=== PATIENT | female | born 1965 | race Caucasian/White ===

== ENCOUNTER 2016-11-04 07:11 | Day surgery (SDC) | payer OTHER ==
[2016-11-01 09:12] LABS: HEMOGLOBIN 13.1 g/dL (11.7-16.4)
[2016-11-01 09:27] LABS: ASPARTATE AMINO TRANSFERASE 13 U/L (15-37); BLOOD UREA NITROGEN 15 mg/dL (7-18)
[~2016-11-04] VITALS: Ht 172.7 cm; Wt 76.0 kg
[~2016-11-04 07:11] MED LIST: ASCO10007 PO; BENZ100C PO; BUPIVACAINE/PF-EPI 0.5% 1:200K ONE; CIPR500T3 PO; CIPR500T87 PO; CYAN10005 PO; ESCI20TA10 PO; ESTR-8 TD; ESTR1PAT79 TD; FOLI1TAB47 PO; GINK120T3 PO; LACT1CAP11 PO; LEVO50TA5 PO; MONT10TA9 PO; MULT-706 PO; MV-M1TAB29 PO; OMEP-110 PO; OMEP40CA6 PO; PROG100C4 PO; PYRI100T2 PO
[2016-11-04] MEDS ORDERED: LACTATED RINGERS 1,000 ML IV SCH (07:47)
[2016-11-04 08:04] VITALS: BP 116/78
[2016-11-04] MEDS ORDERED: SCOPOLAMINE PATCH, 1.5MG PATCH.TD72 TD ONE ×2 (08:25)
[2016-11-04] MEDS ORDERED: FENTANYL PF 250 MCG/5ML ONE (08:28)
[2016-11-04] MEDS ORDERED: MIDAZOLAM 1 MG/ML, 2ML ONE (08:29)
[2016-11-04] MEDS ORDERED: PROPOFOL 10 MG/ML, 20ML ONE (08:37)
[2016-11-04] MEDS ORDERED: DEXAMETHASONE 4 MG/ML, 1ML ONE (08:37)
[2016-11-04] MEDS ORDERED: CEFAZOLIN 1,000 MG ONE (08:37)
[2016-11-04] MEDS ORDERED: ROCURONIUM 10 MG/ML ONE (08:37)
[2016-11-04] MEDS ORDERED: GLYCOPYRROLATE 0.2MG/1ML ONE (08:37)
[2016-11-04] MEDS ORDERED: ONDANSETRON 2MG/ML, 2ML ONE (08:37)
[2016-11-04] MEDS ORDERED: KETOROLAC 30 MG/1 ML ONE (08:37)
[2016-11-04] MEDS ORDERED: SUCCINYLCHOLINE 20 MG/ML, 10ML ONE (08:37)
[2016-11-04] MEDS ORDERED: NEOSTIGMINE 1 MG/ML, 10ML ONE (08:37)
[2016-11-04 08:57] LABS: HCG UR OBC PASS
[2016-11-04] MEDS ORDERED: ACETAMINOPHEN 650 MG/20.3 ML UDC ONE (09:21)
[2016-11-04] MEDS ORDERED: ACETAMINOPHEN 325 MG TABLET ONE (09:22)
[2016-11-04] MEDS ORDERED: OXYcodone 5 MG/5 ML ORAL.SOL UDC ONE (09:22)
[2016-11-04] MEDS ORDERED: MEPERIDINE/PF 25MG/0.5ML ONE (09:22)
[2016-11-04] MEDS ORDERED: MIDAZOLAM 1 MG/ML, 2ML IV PRN (09:30)
[2016-11-04] MEDS ORDERED: ONDANSETRON 2MG/ML, 2ML IVPush PRN (09:30)
[2016-11-04] MEDS ORDERED: PROMETHAZINE 25 MG/ML, 1ML IV PRN (09:30)
[2016-11-04] MEDS ORDERED: FENTANYL PF 100 MCG/2ML IV PRN (09:30)
[2016-11-04] MEDS ORDERED: OXYcodone 5 MG/5 ML ORAL.SOL UDC PO PRN (09:30)
[2016-11-04] MEDS ORDERED: HYDROmorphone 1 MG/ML, 1ML IV PRN (09:30)
[2016-11-04] MEDS ORDERED: HYDROcodone/APAP 7.5-325MG/15ML UDC PO PRN (09:30)
[2016-11-04] MEDS ORDERED: ACETAMINOPHEN 325 MG TABLET PO PRN (09:30)
[2016-11-04] MEDS ORDERED: MEPERIDINE/PF 25MG/0.5ML IVPush PRN (09:30)
== END 2016-11-04 12:20 | disposition home or self-care (01) ==
LOC: OUT 07:11
PROVIDERS: ATTEND Surgery
DX: K81.1 Chronic cholecystitis (principal); E03.9 Hypothyroidism, unspecified; G43.909 Migraine, unspecified, not intractable, without status migrainosus; Z72.89 Other problems related to lifestyle; Z82.3 Family history of stroke; Z82.49 Family history of ischemic heart disease and other diseases of the circulatory system
CPT/HCPCS: 36415; 47562; 80053; 81025; 83690; 85025; 88304; 93005; J0330; J0690; J1100; J1885; J2175; J2250; J2405; J2704; J2710; J3010; J3490

== ENCOUNTER 2016-11-23 01:55 | Emergency (ER) | payer OTHER ==
[~2016-11-23] VITALS: Ht 172.7 cm; Wt 75.9 kg
[~2016-11-23 01:55] MED LIST changes: -BUPIVACAINE/PF-EPI 0.5% 1:200K ONE
[2016-11-23] MEDS ORDERED: CIPROFLOXACIN/PMX 400MG/200ML 200 ML IV ONE (02:30)
[2016-11-23] MEDS ORDERED: LIDOCAINE 1%-EPI 1:100K, 20ML SQ ONE (02:30)
[2016-11-23] MEDS ORDERED: SODIUM CHLORIDE 0.9% 1,000ML IVBOLUS ONE (02:30)
[2016-11-23] MEDS ORDERED: SODIUM CHLORIDE FLUSH 10ML SYR IVF ONE (02:30)
[2016-11-23] MEDS ORDERED: CLINDAMYCIN PMX 600MG/50ML 50 ML IV ONE (02:30)
[2016-11-23] MEDS ORDERED: KETOROLAC 30 MG/1 ML IV ONE (02:30)
[2016-11-23] MEDS ORDERED: HYDROmorphone 1 MG/ML, 1ML ONE ×2 (02:36→04:29)
[2016-11-23] MEDS ORDERED: KETOROLAC 30 MG/1 ML ONE (02:36)
[2016-11-23] MEDS ORDERED: CLINDAMYCIN PMX 600MG/50ML 50 ML ONE (02:37)
[2016-11-23] MEDS ORDERED: CIPROFLOXACIN/PMX 400MG/200ML 200 ML ONE (02:37)
[2016-11-23] MEDS ORDERED: LIDOCAINE 1%-EPI 1:100K, 50ML ONE ×2 (02:37→02:38)
[2016-11-23] MEDS ORDERED: ONDANSETRON 2MG/ML, 2ML ONE (02:49)
[2016-11-23] MEDS: HYDROmorphone 1 MG/ML, 1ML IVPush PRN ×2 (03:00→04:31)
[2016-11-23 05:15] VITALS: BP 104/66
== END 2016-11-23 05:17 | disposition home or self-care (01) ==
LOC: ED 05:02
DX: S61.551A Open bite of right wrist, initial encounter (principal); L03.113 Cellulitis of right upper limb; E03.9 Hypothyroidism, unspecified; K21.9 Gastro-esophageal reflux disease without esophagitis; Z90.49 Acquired absence of other specified parts of digestive tract; W55.01XA Bitten by cat, initial encounter; Y93.89 Activity, other specified; Y92.89 Other specified places as the place of occurrence of the external cause; Y99.8 Other external cause status
CPT/HCPCS: 73110; 96365; 96367; 96372; 96375; 96376; 99284; J0744; J1170; J1885; J3490; J7030

== ENCOUNTER 2016-11-24 19:53 | Inpatient (IN) | payer OTHER ==
[~2016-11-24] VITALS: Ht 172.7 cm; Wt 82.1 kg
[2016-11-24 20:42] LABS: BLOOD UREA NITROGEN 13 mg/dL (7-18)
[2016-11-24 20:44] LABS: HEMOGLOBIN 12.3 g/dL (11.7-16.4)
[2016-11-24] MEDS ORDERED: VANCOMYCIN PER PHARMACY MC ONE (21:00)
[2016-11-24] MEDS ORDERED: SODIUM CHLORIDE FLUSH 10ML SYR IVF ONE (21:00)
[2016-11-24] MEDS ORDERED: VANCOMYCIN 1,700 MG in SODIUM CHLORIDE 0.9% 250 ML IV ONE (21:30)
[2016-11-24] MEDS ORDERED: HYDROmorphone 1 MG/ML, 1ML ONE (21:58)
[2016-11-24] MEDS ORDERED: ONDANSETRON 2MG/ML, 2ML ONE (21:58)
[2016-11-24] MEDS ORDERED: VANCOMYCIN PER PHARMACY MC PRN (22:00)
[2016-11-24] MEDS ORDERED: PROMETHAZINE 25 MG/ML, 1ML IM PRN (22:00)
[2016-11-24] MEDS: HYDROmorphone 2 MG/ML, 1ML IV PRN (22:01)
[2016-11-24] MEDS: ONDANSETRON 2MG/ML, 2ML IVP PRN (22:01)
[2016-11-24] MEDS ORDERED: PHARMACOKINETIC MONITORING MC PRN (23:00)
[2016-11-24 23:02] VITALS: BP 102/68
[2016-11-24] MEDS: MINIVELLE PATCH MC SCH (23:30)
[2016-11-24] MEDS: LEVOFLOXACIN/PMX 750MG/150ML 150 ML IV SCH (23:47)
[2016-11-24] MEDS: CITALOPRAM 20 MG TABLET PO SCH (23:48)
[2016-11-24] MEDS: LACTATED RINGERS 1,000 ML IV SCH (23:48)
[2016-11-24] MEDS: PROGESTERONE 100 MG CAPSULE PO SCH (23:48)
[2016-11-24] MEDS: DIPHENHYDRAMINE 50 MG/ML, 1ML IVPush PRN (23:58)
[2016-11-25 01:52] VITALS: BP 101/65
[2016-11-25] MEDS: HYDROmorphone 2 MG/ML, 1ML IV PRN ×6 (02:23→21:39)
[2016-11-25 05:11] LABS: HEMOGLOBIN 11.4 g/dL (11.7-16.4)
[2016-11-25 05:23] LABS: BLOOD UREA NITROGEN 9 mg/dL (7-18)
[2016-11-25 05:32] LABS: ASPARTATE AMINO TRANSFERASE 16 U/L (15-37)
[2016-11-25 07:17] VITALS: BP 111/70
[2016-11-25] MEDS: MINIVELLE PATCH MC SCH (07:30)
[2016-11-25] MEDS: ONDANSETRON 2MG/ML, 2ML IVP PRN ×3 (07:37→21:39)
[2016-11-25] MEDS: LEVOTHYROXINE 100 MCG INJ IVPush SCH (07:37)
[2016-11-25] MEDS: DIPHENHYDRAMINE 50 MG/ML, 1ML IVPush PRN ×3 (08:23→23:41)
[2016-11-25] MEDS: VANCOMYCIN 1,600 MG in SODIUM CHLORIDE 0.9% 250 ML IV SCH ×2 (09:30→21:39)
[2016-11-25] MEDS ORDERED: ESTRADIOL 0.0375 MG TD SCH ×2 (12:00→12:59)
[2016-11-25] MEDS: LACTATED RINGERS 1,000 ML IV SCH ×2 (12:20→22:30)
[2016-11-25 14:05] VITALS: BP 107/68
[2016-11-25 20:05] VITALS: BP 106/69
[2016-11-25] MEDS: PROGESTERONE 100 MG CAPSULE PO SCH (21:38)
[2016-11-25] MEDS: CITALOPRAM 20 MG TABLET PO SCH (21:38)
[2016-11-25] MEDS: LEVOFLOXACIN/PMX 750MG/150ML 150 ML IV SCH (23:41)
[2016-11-26] MEDS: HYDROmorphone 2 MG/ML, 1ML IV PRN ×6 (01:04→22:30)
[2016-11-26 02:12] VITALS: BP 104/67
[2016-11-26] MEDS: ONDANSETRON 2MG/ML, 2ML IVP PRN ×3 (05:42→22:30)
[2016-11-26 05:50] LABS: BLOOD UREA NITROGEN 7 mg/dL (7-18)
[2016-11-26 06:45] VITALS: BP 101/64
[2016-11-26] MEDS: LEVOTHYROXINE 100 MCG INJ IVPush SCH (09:31)
[2016-11-26] MEDS: VANCOMYCIN 1,600 MG in SODIUM CHLORIDE 0.9% 250 ML IV SCH ×2 (09:31→20:38)
[2016-11-26] MEDS: DIPHENHYDRAMINE 50 MG/ML, 1ML IVPush PRN ×2 (09:32→22:31)
[2016-11-26] MEDS: LACTATED RINGERS 1,000 ML IV SCH (13:37)
[2016-11-26 15:30] VITALS: BP 99/65
[2016-11-26 18:45] VITALS: BP 94/58
[2016-11-26] MEDS ORDERED: ACETAMINOPHEN 325 MG TABLET PO PRN (20:00)
[2016-11-26] MEDS: CITALOPRAM 20 MG TABLET PO SCH (20:06)
[2016-11-26] MEDS: PROGESTERONE 100 MG CAPSULE PO SCH (20:06)
[2016-11-26] MEDS: LEVOFLOXACIN/PMX 750MG/150ML 150 ML IV SCH (22:30)
[2016-11-27] MEDS: LACTATED RINGERS 1,000 ML IV SCH (00:35)
[2016-11-27 02:19] VITALS: BP 92/82
[2016-11-27] MEDS: HYDROmorphone 2 MG/ML, 1ML IV PRN (02:33)
[2016-11-27 07:12] VITALS: BP 95/51
[2016-11-27] MEDS ORDERED: HYDROcodone/APAP 5/325 TABLET PO PRN (08:00)
[2016-11-27] MEDS: LEVOTHYROXINE 100 MCG INJ IVPush SCH (08:11)
[2016-11-27] MEDS: DOXYCYCLINE 100MG TABLET PO SCH ×2 (09:22→21:25)
[2016-11-27 15:55] VITALS: BP 100/60
[2016-11-27 18:21] VITALS: BP 98/64
[2016-11-27] MEDS: CITALOPRAM 20 MG TABLET PO SCH (21:26)
[2016-11-27] MEDS: PROGESTERONE 100 MG CAPSULE PO SCH (21:26)
[2016-11-28] MEDS ORDERED: PNEUMOCOCCAL 23 VACCINE IM-VACC ONE (01:30)
[2016-11-28 01:38] VITALS: BP 91/54
[2016-11-28 04:58] LABS: HEMOGLOBIN 12.4 g/dL (11.7-16.4)
[2016-11-28 05:05] LABS: BLOOD UREA NITROGEN 17 mg/dL (7-18)
[2016-11-28 07:08] VITALS: BP 96/61
[2016-11-28] MEDS ORDERED: DOXY100T PO (07:44)
[2016-11-28] MEDS: LEVOTHYROXINE 100 MCG INJ IVPush SCH (07:45)
[2016-11-28] MEDS: DOXYCYCLINE 100MG TABLET PO SCH (07:45)
[2016-11-28] MEDS ORDERED: ONDANSETRON 4 MG TABLET PO ONE (09:00)
== END 2016-11-28 10:08 | disposition home or self-care (01) | DRG 603 ==
LOC: ED 21:00 → EDIP 21:27 → SUATTDRO 21:31 → 3NE 22:31
DX: L03.113 Cellulitis of right upper limb (principal); E03.9 Hypothyroidism, unspecified; F32.9 Major depressive disorder, single episode, unspecified; S41.131A Puncture wound without foreign body of right upper arm, initial encounter; Z88.1 Allergy status to other antibiotic agents; Z88.0 Allergy status to penicillin; Z90.49 Acquired absence of other specified parts of digestive tract; Z79.890 Hormone replacement therapy; Z88.2 Allergy status to sulfonamides; W55.01XA Bitten by cat, initial encounter; Y93.89 Activity, other specified; Y92.89 Other specified places as the place of occurrence of the external cause; Y99.8 Other external cause status
CPT/HCPCS: 36415; 80048; 80053; 80202; 85025; 85651; 86141; 87040; 96374; 96375; J1170; J1956; J2405; J3370; Q0162; J1200; J7050; J7120

== ENCOUNTER 2017-10-17 12:39 | Emergency (ER) | payer OTHER ==
[~2017-10-17] VITALS: Ht 172.7 cm; Wt 74.9 kg
[~2017-10-17 12:39] MED LIST changes: +ASCO100019 PO; -ASCO10007 PO; +DOXY100T PO; +PROG100C16 PO; -PROG100C4 PO
[2017-10-17] MEDS ORDERED: ONDANSETRON 2MG/ML, 2ML ONE (13:19)
[2017-10-17 13:28] LABS: BASOPHILS # (AUTO) 0.01 x10^3/uL (0-0.1); BASOPHILS % (AUTO) 0 % (0-1); EOSINOPHILS # (AUTO) 0.04 x10^3/uL (0-0.4); EOSINOPHILS % (AUTO) 1 % (1-7); LYMPHOCYTES # (AUTO) 0.58 x10^3/uL (1-3.4); LYMPHOCYTES % (AUTO) 11 % (22-44); MD NO; MEAN CORPUSCULAR HEMOGLOBIN 31.4 pg (27.0-34.8); MEAN CORPUSCULAR HGB CONC 33.9 g/dL (32.4-35.8); MEAN CORPUSCULAR VOLUME 92.5 fL (80-100); MEAN PLATELET VOLUME 8.3 fL (7.4-10.4); MONOCYTES # (AUTO) 0.17 x10^3/uL (0.2-0.8); MONOCYTES % (AUTO) 3 % (2-9); NEUTROPHILS # (AUTO) 4.51 x10^3/uL (1.8-6.8); NEUTROPHILS % (AUTO) 85 % (42-75); PLATELET COUNT 270 x10^3/uL (130-400); RED BLOOD COUNT 4.44 x10^6/uL (3.82-5.3); RED CELL DISTRIBUTION WIDTH 13.2 % (9.6-15.2)
[2017-10-17] MEDS ORDERED: ONDANSETRON 2MG/ML, 2ML IVPush ONE (13:30)
[2017-10-17] MEDS ORDERED: SODIUM CHLORIDE 0.9% 1,000ML IVBOLUS ONE (13:30)
[2017-10-17] MEDS ORDERED: SODIUM CHLORIDE FLUSH 10ML SYR IVF ONE (13:30)
[2017-10-17 13:34] LABS: ALANINE AMINOTRANSFERASE 20 U/L (12-78); ALBUMIN 3.6 g/dL (3.4-5.0); ANION GAP 6 mmol/L (5-15); CALCIUM 8.2 mg/dL (8.5-10.1); CHLORIDE 109 mmol/L (98-107); CREATININE 0.91 mg/dL (0.55-1.02)
[2017-10-17 13:37] LABS: ALKALINE PHOSPHATASE 56 U/L (45-117); BILIRUBIN,TOTAL 0.6 mg/dL (0.2-1.0); TOTAL PROTEIN 6.8 g/dL (6.4-8.2)
[2017-10-17] MEDS ORDERED: OMNIPAQUE 350 MG/ML, 100ML BOTTLE ONE (14:02)
[2017-10-17 14:06] VITALS: BP 104/58
[2017-10-17 15:27] LABS: MICROSCOPIC NOT IND
[2017-10-17 15:55] LABS: CULTURE INDICATED? NO
== END 2017-10-17 16:28 | disposition home or self-care (01) ==
LOC: ED 14:10
DX: R19.7 Diarrhea, unspecified (principal); R10.84 Generalized abdominal pain; R11.2 Nausea with vomiting, unspecified; Z90.49 Acquired absence of other specified parts of digestive tract; F32.9 Major depressive disorder, single episode, unspecified; E03.9 Hypothyroidism, unspecified; Z86.718 Personal history of other venous thrombosis and embolism
CPT/HCPCS: 36415; 74177; 80053; 81003; 83690; 84443; 85025; 96361; 96374; 99285; J2405; J7030; Q9967

== ENCOUNTER → 2018-02-06 | Outpatient (CLI) | payer OTHER | END | disposition home or self-care (01) | LOC: CFH 14:57 | PROVIDERS: ATTEND Internal Medicine Cardiovascular Disease | DX: R07.9 Chest pain, unspecified (principal) | CPT/HCPCS: 93306 ==

== ENCOUNTER 2018-12-03 17:53 | Emergency (ER) | payer OTHER ==
[~2018-12-03] VITALS: Ht 172.7 cm; Wt 76.2 kg
[2018-12-03 17:57] VITALS: BP 123/76
[2018-12-03] MEDS ORDERED: DIPH,PERTUSS(ACELL),TET VAC/PF 0.5 ML IM-VACC ONE ×2 (18:17→18:30)
[2018-12-03] MEDS ORDERED: LIDOCAINE-MPF 1%, 5ML ONE (18:18)
[2018-12-03] MEDS ORDERED: LIDOCAINE-MPF 1%, 5ML INFIL ONE (18:30)
== END 2018-12-03 18:47 | disposition home or self-care (01) ==
LOC: ED 18:20
DX: S61.511A Laceration without foreign body of right wrist, initial encounter (principal); K21.9 Gastro-esophageal reflux disease without esophagitis; E03.9 Hypothyroidism, unspecified; X58.XXXA Exposure to other specified factors, initial encounter; Y93.89 Activity, other specified; Y92.009 Unspecified place in unspecified non-institutional (private) residence as the place of occurrence of the external cause; Y99.8 Other external cause status
CPT/HCPCS: 12001; 90471; 90715

== ENCOUNTER → 2018-12-28 | Outpatient (CLI) | payer OTHER | END | disposition home or self-care (01) | LOC: CFH 10:26 | PROVIDERS: ATTEND Family Medicine | DX: M48.07 Spinal stenosis, lumbosacral region (principal); M51.34 Other intervertebral disc degeneration, thoracic region | CPT/HCPCS: 72072; 72100 ==

== ENCOUNTER → 2019-02-12 | Outpatient (CLI) | payer OTHER | END | disposition home or self-care (01) | LOC: CFH 10:00 | PROVIDERS: ATTEND Family Medicine | DX: Z12.31 Encounter for screening mammogram for malignant neoplasm of breast (principal) | CPT/HCPCS: 77067 ==

== ENCOUNTER 2019-02-28 13:30 | Emergency (ER) | payer OTHER ==
[~2019-02-28] VITALS: Ht 172.7 cm; Wt 76.7 kg
[2019-02-28] MEDS ORDERED: ONDANSETRON ODT 4 MG PO ONE (14:00)
[2019-02-28] MEDS ORDERED: MECLIZINE CHEWABLE 25 MG TAB PO ONE (14:00)
[2019-02-28] MEDS ORDERED: ONDANSETRON ODT 4 MG ONE (14:06)
[2019-02-28] MEDS ORDERED: MECLIZINE CHEWABLE 25 MG TAB ONE (14:06)
--- NOTE | 2019-02-28 15:09 | NUR ---
pt laying on gurney awake & more comfortable, responds approp to staff, NAD, comfort measures provided, call light within reach.
--- NOTE | 2019-02-28 15:11 | NUR ---
pt to CT
--- NOTE | 2019-02-28 15:20 | NUR ---
pt returned from CT
[2019-02-28 16:07] VITALS: BP 107/61
--- NOTE | 2019-02-28 16:08 | NUR ---
pt continues laying on gurney awake & comfortable, responds approp to staff, NAD, comfort measures provided, call light within reach.
--- NOTE | 2019-02-28 16:29 | NUR ---
Patient given discharge instructions and Rx, they have confirmed that they understand the instructions. Patient ambulatory with steady gait.
== END 2019-02-28 16:30 | disposition home or self-care (01) ==
LOC: ED 15:26
DX: S09.90XA Unspecified injury of head, initial encounter (principal); F41.1 Generalized anxiety disorder; E03.9 Hypothyroidism, unspecified; K21.9 Gastro-esophageal reflux disease without esophagitis; F32.9 Major depressive disorder, single episode, unspecified; Z90.49 Acquired absence of other specified parts of digestive tract; W22.8XXA Striking against or struck by other objects, initial encounter; Y93.89 Activity, other specified; Y92.009 Unspecified place in unspecified non-institutional (private) residence as the place of occurrence of the external cause; Y99.8 Other external cause status
CPT/HCPCS: 70450; 70486; 99284; Q0162

== ENCOUNTER 2019-06-16 11:36 | Emergency (ER) | payer OTHER ==
[~2019-06-16] VITALS: Ht 172.7 cm; Wt 77.2 kg
[~2019-06-16 11:36] MED LIST changes: +CYAN-27 PO; -CYAN10005 PO
--- NOTE | 2019-06-16 12:08 | NUR ---
PT HERE WITH C/O HEADACHE. PT STATES BLURRED VISION AND "STARS" BUT STATES THIS HAS HAPPENED BEFORE AND WAS DIAGNOSED WITH MIGRAINES AT A NEUROLOGIST OFFICE. PT STATES ONLY NEW SYMTPOM IS PAIN, PREVIOUSLY NO REPORTED PAIN. PT AAO X 4, PHOTOPHOBIC SO LIGHTS DIMMED FOR COMFORT, DRESSED IN GOWN AND ATTACHED TO MONITOR. NAD, ROOM AIR. CALL LIGHT WITHIN REACH AND FAMILY AT BEDSIDE. PA AT BEDSIDE FOR EXAM.
[2019-06-16] MEDS ORDERED: BUPR300T4 PO (12:10)
--- NOTE | 2019-06-16 12:11 | NUR ---
MED REC COMPLETED BY THIS RN.
[2019-06-16] MEDS ORDERED: ONDANSETRON 2MG/ML, 2ML IVPush ONE (12:30)
[2019-06-16] MEDS ORDERED: SODIUM CHLORIDE 0.9% 1,000ML IVBOLUS ONE (12:30)
[2019-06-16] MEDS ORDERED: KETOROLAC 30 MG/1 ML IVPush ONE (12:30)
[2019-06-16] MEDS ORDERED: SODIUM CHLORIDE FLUSH 10ML SYR IVF ONE (12:30)
[2019-06-16] MEDS ORDERED: DIPHENHYDRAMINE 50 MG/ML, 1ML IVPush ONE (12:30)
[2019-06-16] MEDS ORDERED: METOCLOPRAMIDE 5 MG/ML, 2ML IVPush ONE (12:30)
[2019-06-16 12:31] LABS: BASOPHILS # (AUTO) 0.03 x10^3/uL (0-0.1); BASOPHILS % (AUTO) 1 % (0-1); EOSINOPHILS # (AUTO) 0.09 x10^3/uL (0-0.4); EOSINOPHILS % (AUTO) 2 % (1-7); LYMPHOCYTES # (AUTO) 1.26 x10^3/uL (1-3.4); LYMPHOCYTES % (AUTO) 31 % (22-44); MD NO; MEAN CORPUSCULAR HEMOGLOBIN 31.3 pg (27.0-34.8); MEAN CORPUSCULAR HGB CONC 33.1 g/dL (32.4-35.8); MEAN CORPUSCULAR VOLUME 94.6 fL (80-100); MEAN PLATELET VOLUME 8.1 fL (7.4-10.4); MONOCYTES # (AUTO) 0.27 x10^3/uL (0.2-0.8); MONOCYTES % (AUTO) 7 % (2-9); NEUTROPHILS # (AUTO) 2.45 x10^3/uL (1.8-6.8); NEUTROPHILS % (AUTO) 60 % (42-75); PLATELET COUNT 285 x10^3/uL (130-400); RED BLOOD COUNT 4.26 x10^6/uL (3.82-5.3); RED CELL DISTRIBUTION WIDTH 12.8 % (9.6-15.2)
[2019-06-16 12:58] VITALS: BP 108/72
[2019-06-16] MEDS ORDERED: METOCLOPRAMIDE 5 MG/ML, 2ML ONE (13:00)
[2019-06-16] MEDS ORDERED: ONDANSETRON 2MG/ML, 2ML ONE (13:00)
[2019-06-16] MEDS ORDERED: DIPHENHYDRAMINE 50 MG/ML, 1ML ONE (13:00)
[2019-06-16] MEDS ORDERED: KETOROLAC 30 MG/1 ML ONE (13:00)
--- NOTE | 2019-06-16 13:08 | NUR ---
PT MEDICATED PER MAR, IVP ZOFRAN PULLED AND WASTED MED WAS CANCELLED.
[2019-06-16] MEDS ORDERED: METHOCARBAMOL 750 MG TABLET PO ONE (13:30)
--- NOTE | 2019-06-16 13:43 | NUR ---
ORDER FOR DIANA CANCELLED BY
--- NOTE | 2019-06-16 13:56 | NUR ---
DISCHARGE INSTRUCTIONS REVIEWED
== END 2019-06-16 13:58 | disposition home or self-care (01) ==
LOC: ED 12:16
DX: G44.219 Episodic tension-type headache, not intractable (principal)
CPT/HCPCS: 36415; 85025; 96374; 96375; 99283; J1200; J1885; J2765; J7030

== ENCOUNTER 2021-03-25 16:26 | Emergency (ER) | payer OTHER ==
[~2021-03-25] VITALS: Ht 172.7 cm; Wt 75.0 kg
[~2021-03-25 16:26] MED LIST changes: +BUPR300T94 PO; -CIPR500T3 PO; +CIPR500T4 PO; +MONT10TA17 PO; -MONT10TA9 PO; -OMEP40CA6 PO; +OMEP40CA8 PO; -PYRI100T2 PO; +PYRI100T9 PO
--- NOTE | 2021-03-25 19:28 | NUR ---
NUTRITIONISTS: PT. BEING SEEN BY PROVIDER IN TRIAGE AT THIS TIME.
--- NOTE | 2021-03-25 19:30 | NUR ---
GRISTMILLER: C-COLLAR PLACED PER PA INSTRUCTIONS.
[2021-03-25 22:05] VITALS: BP 147/103
== END 2021-03-25 22:07 | disposition home or self-care (01) ==
LOC: ED 22:01
DX: S06.0X0A Concussion without loss of consciousness, initial encounter (principal); H57.11 Ocular pain, right eye; R11.2 Nausea with vomiting, unspecified; M54.2 Cervicalgia; K21.9 Gastro-esophageal reflux disease without esophagitis; E03.9 Hypothyroidism, unspecified; Z90.49 Acquired absence of other specified parts of digestive tract; W18.30XA Fall on same level, unspecified, initial encounter; Y93.89 Activity, other specified; Y92.009 Unspecified place in unspecified non-institutional (private) residence as the place of occurrence of the external cause; Y99.8 Other external cause status
CPT/HCPCS: 70450; 70486; 72125; 99285